=== PATIENT | female | born 1950 | race African-American/Black ===

== ENCOUNTER 2018-06-06 17:08 | Emergency (ER) | payer OTHER ==
[2018-06-06] MEDS: HYDROcodone/APAP 5/325MG 1 TAB TABLET PO (18:06)
[2018-06-06] MEDS: CYCLOBENZAPRINE 10 MG TABLET. PO (18:06)
== END 2018-06-06 19:29 | disposition home or self-care (01) ==
LOC: ER 19:29
DX: M25.511 Pain in right shoulder (principal); M25.512 Pain in left shoulder; R51 Headache; I10 Essential (primary) hypertension; Z98.890 Other specified postprocedural states; V43.62XA Car passenger injured in collision with other type car in traffic accident, initial encounter; Y93.89 Activity, other specified; Y92.89 Other specified places as the place of occurrence of the external cause; Y99.8 Other external cause status
CPT/HCPCS: 70450; 70486; 73030; 73060; 99284